=== PATIENT | female | born 1990 | race Caucasian/White ===

== ENCOUNTER 2017-11-22 21:11 | Emergency (ER) | payer OTHER ==
[~2017-11-22] VITALS: Ht 157.5 cm; Wt 94.3 kg
[2017-11-22 21:24] VITALS: Ht 157.5 cm; Wt 94.3 kg
[2017-11-22 23:27] VITALS: BP 122/92
== END 2017-11-22 23:27 | disposition home or self-care (01) ==
LOC: ED 21:11
DX: R51 Headache (principal); R11.2 Nausea with vomiting, unspecified
CPT/HCPCS: J1885; J2765

== ENCOUNTER 2018-02-01 01:11 | Emergency (ER) | payer OTHER ==
[2018-02-01 05:45] VITALS: BP 119/80
== END 2018-02-01 06:12 | disposition home or self-care (01) ==
LOC: ED 01:11
DX: S83.91XA Sprain of unspecified site of right knee, initial encounter (principal); Y04.8XXA Assault by other bodily force, initial encounter; Y93.89 Activity, other specified; Y92.89 Other specified places as the place of occurrence of the external cause; Y99.8 Other external cause status
CPT/HCPCS: J1885